=== PATIENT | male | born 2000 | race Caucasian/White ===

== ENCOUNTER 2021-12-28 21:15 | Inpatient (IN) | payer OTHER ==
[~2021-12-28] VITALS: Ht 177.8 cm; Wt 70.3 kg
[~2021-12-28 21:15] MED LIST: BACTRIM 400-801 EACH PO; BACTRIM DS TAB1 EACH PO; CLEOCIN HCL300 MG PO; IBU800 MG PO; KEFLEX CAP 500500 MG PO; NAPROSYN500 MG PO; ZOFRAN ODT 4 MG4 MG SL
[2021-12-28 21:53] LABS: RED BLOOD COUNT 4.72 M/UL (4.20-5.50)
[2021-12-28 22:15] LABS: WHITE BLOOD COUNT 35.9 K/UL (4.5-11.0)
[2021-12-29 05:23] LABS: HEMOGLOBIN 12.7 gm/dl (14.0-17.5); RED BLOOD COUNT 4.08 M/UL (4.20-5.50)
[2021-12-29] MEDS ORDERED: IBU800 MG PO (16:02)
[2021-12-29 18:01] LABS: HEMOGLOBIN 12.8 gm/dl (14.0-17.5); WHITE BLOOD COUNT 29.6 K/UL (4.5-11.0)
[2021-12-30 02:07] LABS: HEMOGLOBIN 12.5 gm/dl (14.0-17.5); RED BLOOD COUNT 4.05 M/UL (4.20-5.50); WHITE BLOOD COUNT 24.2 K/UL (4.5-11.0)
[2021-12-31 05:31] LABS: RED BLOOD COUNT 3.84 M/UL (4.20-5.50)
[2021-12-31 05:33] LABS: WHITE BLOOD COUNT 16.9 K/UL (4.5-11.0)
[2021-12-31 06:12] LABS: BUN/CREATININE RATIO 10 (0-10)
[2021-12-31 16:11] LABS: COMPLEMENT C3, SERUM 107 mg/dL (82-167); COMPLEMENT C4, SERUM 22 mg/dL (12-38)
[2022-01-01 03:07] LABS: HBSAG SCREEN Negative (Negative); HCV AB 0.1 (0.0-0.9); HEP A AB, IGM Negative (Negative); HEP B CORE AB, IGM Negative (Negative)
[2022-01-01 06:17] LABS: HEMOGLOBIN 12.2 gm/dl (14.0-17.5); RED BLOOD COUNT 3.87 M/UL (4.20-5.50); WHITE BLOOD COUNT 13.1 K/UL (4.5-11.0)
[2022-01-01 06:56] LABS: BUN/CREATININE RATIO 10 (0-10)
[2022-01-01] MEDS ORDERED: ACETAMINOPHEN325 MG PO (18:22)
[2022-01-02 06:12] LABS: ANTI-DNASE B STREP ANTIBODIES <78 U/mL (0-120)
== END 2022-01-01 19:00 | disposition left against medical advice (07) | DRG 871 ==
LOC: ER1 21:15 → M/S 12-29 04:53 → CDU 12-29 04:53 → PROG CARE 12-29 11:54 → M/S 12-30 20:42
PROVIDERS: Internal Medicine; Physician Assistant; Registered Nurse; ADMIT Internal Medicine
PROC: B24BZZZ Ultrasonography of Heart with Aorta (ICD-10-PCS; principal; 2021-12-29)
PROC: 3E03329 Introduction of Other Anti-infective into Peripheral Vein, Percutaneous Approach (ICD-10-PCS; 2021-12-29)
DX: A41.9 Sepsis, unspecified organism (principal); N17.0 Acute kidney failure with tubular necrosis; Z20.822 Contact with and (suspected) exposure to COVID-19; S32.039A Unspecified fracture of third lumbar vertebra, initial encounter for closed fracture; S32.049A Unspecified fracture of fourth lumbar vertebra, initial encounter for closed fracture; S32.059A Unspecified fracture of fifth lumbar vertebra, initial encounter for closed fracture; S22.049A Unspecified fracture of fourth thoracic vertebra, initial encounter for closed fracture; S22.059A Unspecified fracture of T5-T6 vertebra, initial encounter for closed fracture; S22.069A Unspecified fracture of T7-T8 vertebra, initial encounter for closed fracture; M62.82 Rhabdomyolysis; R65.20 Severe sepsis without septic shock; F12.10 Cannabis abuse, uncomplicated; I07.1 Rheumatic tricuspid insufficiency; X58.XXXA Exposure to other specified factors, initial encounter; F17.210 Nicotine dependence, cigarettes, uncomplicated; Z56.0 Unemployment, unspecified; Z88.8 Allergy status to other drugs, medicaments and biological substances; Y92.091 Bathroom in other non-institutional residence as the place of occurrence of the external cause; Z81.3 Family history of other psychoactive substance abuse and dependence
CPT/HCPCS: ECHO; 36415; 70450; 70486; 70551; 71045; 72072; 72125; 72129; 72132; 80048; 80053; 80074; 80202; 80307; 81001; 81206; 81207; 82436; 82550; 82553; 82570; 83540; 83550; 83605; 83874; 84133; 84156; 84300; 84439; 84443; 84484; 85007; 85025; 85027; 85610; 85652; 86140; 86160; 86162; 87040; 87086; 89050; 93005; 93306; 96365; 96366; 96375; 99285; G0480; J0696; J2185; J3370; J7030; J7070; Q9967; U0002

== ENCOUNTER 2022-01-03 01:30 | Emergency (ER) | payer OTHER ==
[~2022-01-03 01:30] MED LIST changes: +ACETAMINOPHEN325 MG PO
[2022-01-03 02:12] LABS: WHITE BLOOD COUNT 12.4 K/UL (4.5-11.0)
[2022-01-03 02:16] LABS: RED BLOOD COUNT 4.43 M/UL (4.20-5.50)
[2022-01-03 02:34] LABS: BUN/CREATININE RATIO 12 (0-10)
== END 2022-01-03 04:55 | disposition home or self-care (01) ==
LOC: ER1 01:30
PROVIDERS: Emergency Medicine
DX: M62.82 Rhabdomyolysis (principal); Z88.5 Allergy status to narcotic agent
CPT/HCPCS: 80053; 81001; 85025; 99284

== ENCOUNTER → 2022-01-16 | Outpatient (CLI) | payer OTHER | LOC: KOH-I 11:10 | DX: S32.040A Wedge compression fracture of fourth lumbar vertebra, initial encounter for closed fracture (principal); S32.050A Wedge compression fracture of fifth lumbar vertebra, initial encounter for closed fracture; S32.030A Wedge compression fracture of third lumbar vertebra, initial encounter for closed fracture; X58.XXXA Exposure to other specified factors, initial encounter; M47.816 Spondylosis without myelopathy or radiculopathy, lumbar region; M51.86 Other intervertebral disc disorders, lumbar region; M47.817 Spondylosis without myelopathy or radiculopathy, lumbosacral region; M51.87 Other intervertebral disc disorders, lumbosacral region; M48.07 Spinal stenosis, lumbosacral region | CPT/HCPCS: 72148 ==